=== PATIENT | female | born 1960 | race African-American/Black ===

== ENCOUNTER 2018-04-20 12:33 | Emergency (ER) | payer MEDICAID ==
[~2018-04-20] VITALS: Ht 167.6 cm; Wt 72.6 kg
--- NOTE | 2018-04-20 13:54 | Emergency Room Report ---
History of Present Illness General Chief Complaint: Upper Respiratory Illness Source: Patient Present Illness HPI 57-year-old female presents to the emergency department complaining of runny nose, nasal congestion and coughing phlegm for almost one month. Patient denies fevers or chills she states that she feels drainage going on the back of her throat. Patient states that she has not had any recent travel or ill contacts with similar symptoms. Patient denies pain at this time she reports phlegm is worse in the morning and sometimes at night. Patient denies history of GERD. No other aggravating or relieving symptoms at this time patient states that she has not tried any trid-mdf-vzymzpm allergy medications. Allergies: Coded Allergies: MORPHINE (Verified Allergy, Unknown, 04/20/18) Patient History Past Medical History: see triage record Past Surgical History: none Pertinent Family History: none Now: No Reviewed Nursing Documentation: PMH: Agreed; PSxH: Agreed Nursing Documentation-PMH Past Medical History: No Stated History Review of Systems All Other Systems: negative except mentioned in HPI Physical Exam Vital Signs Date Time Temp Pulse Resp B/P (MAP) Pulse Ox O2 Delivery O2 Flow Rate FiO2 04/20/18 12:49 98.4 71 16 158/100 96 Room Air Sp02 EP Interpretation: reviewed, normal General Appearance: no apparent distress, alert, GCS 15, non-toxic Head: normocephalic, atraumatic Eyes: bilateral eye normal inspection, bilateral eye PERRL ENT: hearing grossly normal, normal pharynx, normal voice, TMs + canals normal , uvula midline, moist mucus membranes, nasal congestion Neck: full range of motion Respiratory: lungs clear, normal breath sounds, no respiratory distress, no wheezing, speaking full sentences Cardiovascular #1: regular rate, rhythm Musculoskeletal: back normal, gait/station normal, normal range of motion, non- tender Neurologic: alert, oriented x3, responsive, motor strength/tone normal, sensory intact, speech normal, grossly normal Psychiatric: judgement/insight normal Skin: normal color, no rash, warm/dry, well hydrated Lymphatic: no adenopathy Medical Decision Making PA Attestation Dr. Ye is my supervising Physician whom patient management has been discussed with. Diagnostic Impression: Primary Impression: Post-nasal drainage Additional Impression: Cough ER Course 57-year-old female presents to the emergency department complaining of runny nose, nasal congestion and coughing phlegm for almost one month. Patient denies fevers or chills she states that she feels drainage going on the back of her throat. Patient states that she has not had any recent travel or ill contacts with similar symptoms. Patient denies pain at this time she reports phlegm is worse in the morning and sometimes at night. Patient denies history of GERD. No other aggravating or relieving symptoms at this time patient states that she has not tried any csjc-yhd-ovnyiqb allergy medications. Ddx considered but are not limited to URI, pneumonia, PE, strep pharyngitis, meningitis. Vital signs: Pt. is afebrile, the remaining VS are WNL H&PE are most consistent with postnasal drainage most likely allergy in etiology. no meningeal signs, oropharynx is not involved, no evidence of bacterial infection at this time. ORDERS: none required at this time, the diagnosis is clinical ED INTERVENTIONS: None required at this time. -I do not identify an emergent condition at this time. With current presentation , pt. is stable for close outpatient follow up and conservative treatment. D/ w pt. to return promptly to ED with worsening or new symptoms.- Pt. verbalizes' understanding and agreement with proposed treatment plan.proposed treatment plan. DISCHARGE: At this time pt. is stable for d/c to home. Will provide printed patient care instructions, and any necessary prescriptions. Care plan and follow up instructions have been discussed with the patient prior to discharge. Last Vital Signs Date Time Temp Pulse Resp B/P (MAP) Pulse Ox O2 Delivery O2 Flow Rate FiO2 04/20/18 12:49 98.4 71 16 158/100 96 Room Air Disposition: HOME, SELF-CARE Condition: Stable Scripts Guaifenesin (Guaifenesin) 1,200 Mg Tab.er.12h 1200 MG PO Q12HR, #20 TAB Prov: Ashley May 04/20/18 Cetirizine Hcl/Pseudoephedrine (ZYRTEC-D TABLET) 1 Each Tab.er.12h 1 EACH ORAL Q12HR for 14 Days, #28 TAB Prov: Ashley May 04/20/18 Referrals: [facility],REFERRING (PCP) Patient Instructions: Allergies, Vyub-fn-Kmym, Cough, Adult, Edkg-wq-Aftn Additional Instructions: Take medications as directed. Follow up with a Primary Care Provider in 3-5 days, even if your symptoms have resolved. --Please review list of primary care clinics, if you do not already have a primary care provider Return sooner to ED if new symptoms occur, or current symptoms become worse. - Please note that this Emergency Department Report was dictated using myQaaplate shear operator technology software, occasionally this can lead to erroneous entry secondary to interpretation by the dictation equipment. Ashley May Apr 20, 2018 13:54
[2018-04-20] MEDS ORDERED: GUAIFENESIN1200 MG PO (13:55)
[2018-04-20] MEDS ORDERED: ZYRTEC-D TABLE1 EACH ORAL (13:55)
[2018-04-20 14:03] VITALS: BP 152/90
[2018-04-20 14:04] VITALS: BP 152/90
--- NOTE | 2018-04-20 14:04 | NUR ---
ER DISCHARGE NOTE: Patient is cleared to be discharged per ERMD, pt is aox4, on room air, with stable vital signs. pt was given dc and prescription instructions, pt was able to verbalize understanding, pt is able to ambulate with steady gait. pt took all belongings.
== END 2018-04-20 14:05 | disposition home or self-care (01) ==
LOC: EMR 13:40
DX: R09.82 Postnasal drip (principal); R05 Cough; Z88.5 Allergy status to narcotic agent
CPT/HCPCS: 99282

== ENCOUNTER 2018-07-14 09:46 | Emergency (ER) | payer SELFPAY ==
[~2018-07-14] VITALS: Ht 167.6 cm; Wt 73.5 kg
[~2018-07-14 09:46] MED LIST: GUAIFENESIN1200 MG PO; ZYRTEC-D TABLE1 EACH ORAL
[2018-07-14] MEDS ORDERED: NKM (10:01)
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
[2018-07-14 10:44] VITALS: BP 132/89
[2018-07-14] MEDS ORDERED: Ketorolac 60mg Inj IM ONE (11:00)
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
[2018-07-14] MEDS ORDERED: IBUPROFEN800 MG ORAL (11:12)
[2018-07-14] MEDS ORDERED: LIDODERM700 M1 TOPIC (11:12)
[2018-07-14] MEDS ORDERED: CYCLOBENZAPRINE10 MG ORAL (11:12)
[2018-07-14 11:20] VITALS: BP 128/75
--- NOTE | 2018-07-14 11:20 | NUR ---
ER DISCHARGE NOTE: Patient is cleared to be discharged per ERMD, pt is aox4, on room air, with stable vital signs. pt was given dc and prescription instructions, pt was able to verbalize understanding, pt id band removed. pt is able to ambulate with steady gait. pt took all belongings.
== END 2018-07-14 11:20 | disposition home or self-care (01) ==
LOC: EMR 10:20
DX: M62.838 Other muscle spasm (principal); M54.12 Radiculopathy, cervical region; M19.90 Unspecified osteoarthritis, unspecified site; Z88.6 Allergy status to analgesic agent
CPT/HCPCS: 96372; 99283